=== PATIENT | female | born 1960 | race American Indian/Alaskan Native ===

== ENCOUNTER 2019-06-30 11:35 | Emergency (ER) | payer SELFPAY ==
--- NOTE | 2019-06-30 12:48 | Emergency Department Report ---
Blank Doc - Documentation Documentation: 58-year-old female that presents with dizziness. This initial assessment/diagnostic orders/clinical plan/treatment(s) is/are subject to change based on patient's health status, clinical progression and re- assessment by fellow clinical providers in the ED. Further treatment and workup at subsequent clinical providers discretion. Patient/guardians urged not to elope from the ED as their condition may be serious if not clinically assessed and managed. Initial orders include: 1- Patient sent to [facility] for further evaluation and treatment 2- labs 3- UA
[2019-06-30 13:54] LABS: Basophils % (Auto) 0.4 % (0.0-1.8); Eosinophils % (Auto) 0.7 % (0.0-4.3); Hematocrit 38.9 % (30.3-42.9); Hemoglobin 12.3 gm/dl (10.1-14.3); Lymphocytes # (Auto) 1.8 K/mm3 (1.2-5.4); Lymphocytes % (Auto) 31.6 % (13.4-35.0); Mean Corpuscular HGB Conc 32 % (30-34); Monocytes # (Auto) 0.4 K/mm3 (0.0-0.8); Monocytes % (Auto) 6.7 % (0.0-7.3); Platelet Count 209 K/mm3 (140-440); Red Blood Count 5.67 M/mm3 (3.65-5.03); Red Cell Distribution Width 16.2 % (13.2-15.2)
[2019-06-30 14:03] LABS: Mean Corpuscular Volume 69 fl (79-97)
[2019-06-30 14:15] LABS: BUN/Creatinine Ratio 11; Blood Urea Nitrogen 8 mg/dL (7-17); Hemolysis Index 10
--- NOTE | 2019-06-30 15:20 | Emergency Department Report ---
ED Dizziness HPI - General Chief Complaint: Dizziness Stated Complaint: DIZZY Time Seen by Provider: 06/30/19 12:47 Source: patient Mode of arrival: Wheelchair Limitations: No Limitations - History of Present Illness Initial Comments: 58-year-old -[place] female presents to the emergency room complaining of acute onset of dizziness. Patient states she was delivering her sister to dialysis when she started to get dizzy. Patient denies any nausea vomiting no headache. Patient denies any spinning of the room. Patient denies any chest pain shortness of breathing. Patient reports she has a history of hypertension and takes her medications of amlodipine 5 mg and hydrochlorothiazide 12.5 mg. Patient reports that the dizziness is improving. MD Complaint: dizziness -: This morning Timing: sudden onset Description: off-balance History of Same: No (hx/o vertigo) History of Trauma: No Improves With: nothing Worsens With: nothing Associated Symptoms: denies other symptoms - Related Data Previous Rx's Medication Instructions Recorded Last Taken Type Neomy/Polymyx B/Hc (Otic) Soln 4 drops AD TID 7 Days #1 bottle 02/20/19 Unknown Rx [Cortisporin (Otic) Soln] Allergies Allergy/AdvReac Type Severity Reaction Status Date / Time No Known Allergies Allergy Verified 02/20/19 15:42 ED Review of Systems ROS: Stated complaint: DIZZY Other details as noted in HPI Comment: All other systems reviewed and negative ED Past Medical Hx - Past Medical History Previous Medical History?: Yes Hx Hypertension: Yes Hx Diabetes: Yes (type 2) - Surgical History Past Surgical History?: No - Social History Smoking Status: Never Smoker Substance Use Type: None - Medications Home Medications: Home Medications Medication Instructions Recorded Confirmed Last Taken Type Neomy/Polymyx B/Hc (Otic) Soln 4 drops AD TID 7 Days #1 bottle 02/20/19 Unknown Rx [Cortisporin (Otic) Soln] ED Physical Exam - General Limitations: No Limitations General appearance: alert, in no apparent distress - Head Head exam: Present: atraumatic, normocephalic - Eye Eye exam: Present: normal appearance - ENT ENT exam: Present: mucous membranes moist - Neck Neck exam: Present: full ROM - Extremities Exam Extremities exam: Present: normal inspection, full ROM - Back Exam Back exam: Present: normal inspection, full ROM - Neurological Exam Neurological exam: Present: alert, oriented X3, normal gait - Expanded Neurological Exam Expanded Cranial nerves: EOM's Intact: Normal, Gag Reflex: Normal, Tongue Deviation: Normal, Nystagmus: Normal, Facial Sensation: Normal, Facial Palsy with Forehead Movement: Normal, Facial Palsy without Forehead Movement: Normal Cerebellar function: Finger to Nose: Normal, Heel to Porter: Normal, Romberg: Normal Upper motor neuron: Bunny Neglect: Normal, Pronator Drift: Normal, Sensory Extinction: Normal Sensory exam: Upper Extremity Light Touch: Normal, Upper Extremity Pin Prick: Normal, Upper Extremity Temperature: Normal, UE 2 Point Discrimination: Normal, Lower Extremity Light Touch: Normal, Lower Extremity Pin Prick: Normal, Lower Extremity Temperature: Normal, LE 2 Point Discrimination: Normal Motor strength exam: RUE: 5, LUE: 5, RLE: 5, LLE: 5 Best Eye Response (Encinal): (4) open spontaneously Best Motor Response (Encinal): (6) obeys commands Best Verbal Response (Daisy): (5) oriented Encinal Total: 15 - Psychiatric Psychiatric exam: Present: normal affect, normal mood - Skin Skin exam: Present: warm, dry, intact, normal color. Absent: rash ED Course Vital Signs 06/30/19 11:46 Temperature 98.0 F Pulse Rate 78 Respiratory 16 Rate Blood Pressure 158/78 O2 Sat by Pulse 100 Oximetry ED Medical Decision Making - Lab Data Result diagrams: 06/30/19 13:14 06/30/19 13:14 Laboratory Tests 06/30/19 06/30/19 13:14 13:14 WBC 5.7 RBC 5.67 H Hgb 12.3 Hct 38.9 MCV 69 L MCH 22 L MCHC 32 RDW 16.2 H Plt Count 209 Lymph % (Auto) 31.6 Stephenson % (Auto) 6.7 Eos % (Auto) 0.7 Baso % (Auto) 0.4 Lymph # 1.8 Stephenson # 0.4 Eos # 0.0 Baso # 0.0 Seg Neutrophils % 60.6 Seg Neutrophils # 3.4 Sodium 137 Potassium 4.2 Chloride 101.7 Carbon Dioxide 22 Anion Gap 18 BUN 8 Creatinine 0.7 Estimated GFR > 60 BUN/Creatinine Ratio 11 Glucose 168 H Calcium 9.0 - Medical Decision Making 58-year-old -[place] female presents to the emergency room complaining of acute onset of dizziness. Patient states she was delivering her sister to dialysis when she started to get dizzy. Patient denies any nausea vomiting no headache. Patient denies any spinning of the room. Patient denies any chest pain shortness of breathing. Patient reports she has a history of hypertension and takes her medications of amlodipine 5 mg and hydrochlorothiazide 12.5 mg. Patient reports that the dizziness is improving. Patient comes to me at 1625 to inform you that she may have taken 2 doses of her metformin and that could be the reason why she dizzy. Patient reports dizziness has resolved. Critical care attestation.: If time is entered above; I have spent that time in minutes in the direct care of this critically ill patient, excluding procedure time. ED Disposition Clinical Impression: Dizziness Disposition: [id number] TO HOME OR SELFCARE Is pt being admited?: No Does the pt Need Aspirin: No Condition: Stable Instructions: Dizziness (ED) Additional Instructions: All labs were within normal limits. Referrals: RAVI DANIEL MD [Staff Physician] - 3-5 Days
[2019-06-30 15:44] VITALS: BP 139/66
[2019-06-30 15:53] LABS: Bacteria,Urine 1+ /HPF (Negative); Bilirubin,Urine NEG (Negative); Blood,Urine NEG (Negative); Color,Urine Yellow (Yellow); Mucus,Urine FEW /HPF; Protein,Urine <15 mg/dL mg/dL (Negative); Urobilinogen,Urine < 2.0 mg/dL (<2.0); WBC,Urine < 1.0 /HPF (0.0-6.0)
== END 2019-06-30 16:28 | disposition home or self-care (01) ==
LOC: ED 11:35
DX: R42 Dizziness and giddiness (principal); I10 Essential (primary) hypertension; E11.9 Type 2 diabetes mellitus without complications; Z79.899 Other long term (current) drug therapy
CPT/HCPCS: 36415; 80048; 81001; 82962; 85025